=== PATIENT | female | born 1965 | race Caucasian/White ===

== ENCOUNTER 2019-05-07 18:44 | Emergency (ER) | payer OTHER ==
[~2019-05-07] VITALS: Ht 160 cm; Wt 56.7 kg
[2019-05-07 19:13] VITALS: BP 128/77
[2019-05-07] MEDS ORDERED: IBUPROFEN 800 MG TAB PO ONE (21:45)
== END 2019-05-07 22:38 | disposition home or self-care (01) ==
LOC: ER 18:50
DX: S82.832A Other fracture of upper and lower end of left fibula, initial encounter for closed fracture (principal); Z90.710 Acquired absence of both cervix and uterus; X58.XXXA Exposure to other specified factors, initial encounter; Y93.01 Activity, walking, marching and hiking; Y92.89 Other specified places as the place of occurrence of the external cause; Y99.8 Other external cause status
CPT/HCPCS: 29515; 73610